=== PATIENT | male | born 1970 | race Native Hawaiian/Other Pacific Islander ===

== ENCOUNTER 2016-10-15 07:33 | Emergency (ER) | payer BC, OTHER ==
[2016-10-15 07:37] VITALS: TEMP 98.8; BMI 25.6
--- NOTE | 2016-10-15 08:29 | ED PDOC ---
Upper Extremity Pain/Injury Time Seen by Provider: 10/15/16 07:49 Chief Complaint (Nursing): Upper Extremity Problem/Injury Chief Complaint (Provider): Right shoulder pain History Per: Patient History/Exam Limitations: no limitations Onset/Duration Of Symptoms: Days (x1 week) Current Symptoms Are (Timing): Still Present Additional Complaint(s): 46 y/o male presents to the emergency department with a complaint of a right shoulder pain x1 week. States he cannot raise arm and has limited range of motion. Reports he visited [place] 2 weeks ago and was carrying his 6 month year old son on car seat with the right arm when pain slowly began. On Sunday, , pain worsened and woke up Sunday during the middle of the night with severe pain. Patient says pain right now is a 2/10, a 5/10 with movement, and 8/10 if someone is pressing on his shoulder. Denies fall or taking any medications for the relief of pain. Of note, patient had experienced previous right shoulder pain after exertion with minimal pinching after 1.5 years ago but always ignored it. He called his chiropractic who advised icing the region but decided to arrive to the emergency room after pain gradually worsened. Past Medical History Reviewed: Historical Data, Nursing Documentation, Vital Signs Vital Signs: Last Vital Signs Temp 98.8 F 10/15/16 07:36 Pulse 81 10/15/16 07:36 Resp 16 10/15/16 07:36 BP 147/78 10/15/16 07:36 Pulse Ox 98 10/15/16 07:36 - Medical History PMH: No Chronic Diseases - Surgical History Other surgeries: Eye surgery (14 years old) - Family History Family History: States: Unknown Family Hx - Social History Current smoker - smoking cessation education provided: No Alcohol: Occasional Drugs: Denies - Home Medications Home Medications: Ambulatory Orders Medication Instructions Recorded No Known Home Med 10/15/16 - Allergies Allergies/Adverse Reactions: Allergies Allergy/AdvReac Type Severity Reaction Status Date / Time Latex, Natural Rubber Allergy SWELLING Verified 10/15/16 07:53 Review of Systems ROS Statement: Except As Marked, All Systems Reviewed And Found Negative Constitutional: Negative for: Other (Fall or known injury) Musculoskeletal: Positive for: Shoulder Pain (Right) Physical Exam - Reviewed Nursing Documentation Reviewed: Yes Vital Signs Reviewed: Yes - Physical Exam Appears: Positive for: Non-toxic, No Acute Distress Head Exam: Positive for: ATRAUMATIC, NORMAL INSPECTION, NORMOCEPHALIC Skin: Positive for: Normal Color, Warm, Dry Eye Exam: Positive for: Normal appearance, EOMI Neck: Positive for: Normal, Supple Respiratory: Negative for: Accessory Muscle Use, Respiratory Distress Extremity: Positive for: Other (Limited ROM particularly with abduction. ). Negative for: Normal ROM, Pedal Edema, Deformity (of the right shoulder), Swelling (of the right shoulder) - ECG O2 Sat by Pulse Oximetry: 98 (RA) Pulse Ox Interpretation: Normal - Other Rad Xray shoulder X-Ray: Interpreted by Me, Viewed By Me X-Ray Interpretation: no acute findings. calcifications in rotator tendons Medical Decision Making Medical Decision Making: Time: 07:59 Initial impression: Shoulder pain and arthralgia. Rotator cuff injury differential include tendonitis and arthritis Initial plan: --Shoulder right x-ray --Reassessment Time: 09:40 Patient is medically stable, and requires no further treatment in the ED at this time. Patient will be discharged home and advised to take OTC Advil or Naprosyn for the relief of pain. Counseling was provided and all questions were answered regarding diagnosis and need for follow up with Dr. Cullen Rodriguez MD. There is agreement to discharge plan. Return if symptoms persist or worsen. Clinical Impression: Calcific shoulder tendinitis, rotator cuff tendonitis, and nontraumatic shoulder pain Scribe Attestation: Documented by Sanyd Ball, acting as a scribe for Jonathan Alex MD. Provider Scribe Attestation: All medical record entries made by the Scribe were at my direction and personally dictated by me. I have reviewed the chart and agree that the record accurately reflects my personal performance of the history, physical exam, medical decision making, and the department course for this patient. I have also personally directed, reviewed, and agree with the discharge instructions and disposition. Disposition - Clinical Impression Clinical Impression: Nontraumatic shoulder pain, Calcific shoulder tendinitis, Rotator cuff tendonitis - Patient ED Disposition Is Patient to be Admitted: No Doctor Will See Patient In The: Office Counseled Patient/Family Regarding: Studies Performed, Diagnosis, Need For Followup - Disposition Referrals: Cullen Rodriguez MD [Staff Provider] - Disposition: Routine/Home Disposition Time: 09:40 Condition: GOOD Additional Instructions: Take advil or naproxen for pain. Follow up with your PCP in 3 days. Instructions: Rotator Cuff Tendinitis (ED), Calcific Tendinitis (ED)
[2016-10-15 10:40] VITALS: BP 112/83; PULSE 71; RESP 18
--- NOTE | 2016-10-15 13:09 | RAD ---
PROCEDURE: Radiographs of the Right Shoulder HISTORY: right shoulder pain no trauma COMPARISON: No prior. FINDINGS: BONES: Normal. No fracture. JOINTS: Normal. Glenohumeral and acromioclavicular joints preserved. No osteoarthritis. SOFT TISSUES: There is a 5 x 15 mm calcification in the region of the distal rotator cuff consistent with calcific tendinitis OTHER FINDINGS: None. IMPRESSION: There is a 5 x 15 mm calcification in the region of the distal rotator cuff consistent with calcific tendinitis
[2016-10-15 14:10] VITALS: O2SAT 98
== END 2016-10-15 10:49 | disposition home or self-care (01) ==
LOC: H.ER 07:33
DX: M25.511 Pain in right shoulder (principal); M75.31 Calcific tendinitis of right shoulder; M75.101 Unspecified rotator cuff tear or rupture of right shoulder, not specified as traumatic